=== PATIENT | female | born 1955 | race Caucasian/White ===

== ENCOUNTER → 2022-02-11 13:03 | Outpatient (REF) | payer MEDICARE, OTHER, SELFPAY ==
[2022-02-11 13:45] LABS: Erythrocyte Sed Rate 45 mm/hour (0-20)
[2022-02-11 14:00] LABS: ALT (SGPT) 18 U/L (0-35); AST (SGOT) 25 U/L (14-36); Alkaline Phosphatase 98 U/L (38-126); Direct Bilirubin 0.4 mg/dl (0.0-0.4); Total Bilirubin 0.9 mg/dl (0.2-1.3); Total Protein 7.2 g/dl (6.3-8.2)
== END ==
LOC: CLAB 13:03
PROVIDERS: ATTENDING PHYSICIAN Family Medicine
DX: M06.862 Other specified rheumatoid arthritis, left knee (principal); M62.81 Muscle weakness (generalized)
CPT/HCPCS: 36415; 80076; 85652; 86140